=== PATIENT | female | born 1960 | race Caucasian/White ===

== ENCOUNTER → 2018-02-14 | Outpatient (CLI) | payer OTHER ==
[~2018-02-14] MED LIST: ATIVAN1 MG PO; AUGMENTIN875 MG PO; CAL MAG ZINC +1 EAC1 PO; CETIRIZINE HCL10 M2 PO; DAILY VITAMIN1 EAC8 PO; FLONASE16 G1 BOTH NARES; LIPITOR10 MG PO; OMEGA 3-6-9 11200 MG PO; POTASSIUM-9999 MG PO; PRILOSEC40 MG PO; TENORMIN50 MG PO; ZOCOR10 MG PO; ZYRTEC10 M4 PO
== END | disposition home or self-care (01) ==
DX: M17.12 Unilateral primary osteoarthritis, left knee (principal); R26.2 Difficulty in walking, not elsewhere classified; M25.562 Pain in left knee; M25.662 Stiffness of left knee, not elsewhere classified; Z74.1 Need for assistance with personal care; M62.81 Muscle weakness (generalized)
CPT/HCPCS: 97161 GP; 97165 GO; 97530 GP; 97535 GO

== ENCOUNTER 2018-02-26 21:14 | Inpatient (IN) | payer OTHER ==
[~2018-02-26] VITALS: Ht 162.6 cm; Wt 146.1 kg
[~2018-02-26 21:14] MED LIST changes: +OMEPRAZOLE40 M1 PO; +WELLBUTRIN XL150 MG PO
[2018-02-27 07:35] VITALS: BP 154/70
[2018-02-27 07:45] LABS: ALBUMIN 4.7 G/DL (3.2-4.8); ALKALINE PHOSPHATASE 70 IU/L (3-129); ALT (GPT) 109 IU/L (3-49); AST (GOT) 51 IU/L (2-34); CHLORIDE 106 MEQ/L (99-109); CREATININE 0.7 MG/DL (0.6-1.3); GFR ESTIMATE (CALCULATED) > 59 mL/min/; GLUCOSE 121 mg/dL (70-99); POTASSIUM 4.1 MEQ/L (3.7-5.4); SODIUM 142 MEQ/L (136-147); TOTAL BILIRUBIN 0.8 MG/DL (0.0-1.0); TOTAL PROTEIN 7.1 G/DL (6.4-8.3); UREA NITROGEN (BUN) 16 mg/dL (9-23)
[2018-02-27 12:58] LABS: HEMATOCRIT 36.5 % (36.0-46.0); HEMOGLOBIN 11.7 G/DL (11.9-15.5); MCH 29.7 PG (29.0-34.0); MCHC 32.1 G/DL (30.0-36.0); MCV 92.6 FL (83-99); PLATELET COUNT 127 K/uL (156-360); RBC DIS.WIDTH-CV 13.5 % (11.8-14.6); RED BLOOD COUNT 3.94 M/uL (3.80-5.20); WHITE BLOOD COUNT 4.5 K/uL (4.1-10.2)
[2018-02-27 13:45] VITALS: BP 128/61
[2018-02-27 15:44] VITALS: BP 111/55
[2018-02-27 20:14] VITALS: BP 115/55
[2018-02-28] VITALS (7 sets, daily range): BP systolic 110–132; BP diastolic 55–67
[2018-02-28 06:42] LABS: HEMATOCRIT 33.4 % (36.0-46.0); HEMOGLOBIN 10.9 G/DL (11.9-15.5); MCV 91.3 FL (83-99)
[2018-02-28 07:01] LABS: CHLORIDE 101 MEQ/L (99-109); CREATININE 0.8 MG/DL (0.6-1.3); GFR ESTIMATE (CALCULATED) > 59 mL/min/; GLUCOSE 135 mg/dL (70-99); POTASSIUM 3.8 MEQ/L (3.7-5.4); SODIUM 138 MEQ/L (136-147); UREA NITROGEN (BUN) 18 mg/dL (9-23)
[2018-03-01 06:44] LABS: HEMATOCRIT 30.6 % (36.0-46.0); HEMOGLOBIN 10.3 G/DL (11.9-15.5); MCV 88.2 FL (83-99)
[2018-03-01 08:06] VITALS: BP 137/62
[2018-03-01] MEDS ORDERED: LOVENOX40 MG/0.4 SC (08:54)
[2018-03-01] MEDS ORDERED: OXYCONTIN10 MG PO (08:54)
[2018-03-01] MEDS ORDERED: ENDOCET 5-3251 EACH PO (08:54)
== END 2018-03-01 15:21 | DRG 470 ==
LOC: 2SOUTH → ENRESERV 21:14 → 2SOUTH 02-27 06:44 → ENRESERV 02-27 11:39 → 3EAST 02-27 12:43 → 2SOUTH 02-27 12:52 → 3EAST 03-01 15:21
PROVIDERS: Orthopaedic Surgery
PROC: 0SRD0J9 Replacement of Left Knee Joint with Synthetic Substitute, Cemented, Open Approach (ICD-10-PCS; principal; 2018-02-27)
DX: M17.12 Unilateral primary osteoarthritis, left knee (principal); Z68.43 Body mass index [BMI] 50.0-59.9, adult; E66.01 Morbid (severe) obesity due to excess calories; E78.5 Hyperlipidemia, unspecified; I10 Essential (primary) hypertension; Z98.84 Bariatric surgery status; K21.9 Gastro-esophageal reflux disease without esophagitis; K76.0 Fatty (change of) liver, not elsewhere classified
CPT/HCPCS: 73560; 80048; 80053; 85014; 85018; 85027; 87641; C1713; C1776; J0690; J1170; J1650; J2250; J2405; J2795; J7050; S0020